=== PATIENT | female | born 1975 | race Caucasian/White ===

== ENCOUNTER 2021-08-17 17:25 | Emergency (ER) | payer SELFPAY ==
[~2021-08-17] VITALS: Ht 160 cm; Wt 67.3 kg
[2021-08-17] MEDS ORDERED: SYNTHROID137 MCG PO (17:43)
[2021-08-17] MEDS ORDERED: CLONAZEPAM2 MG PO (17:44)
[2021-08-17] MEDS ORDERED: LEXAPRO20 M1 PO (17:44)
[2021-08-17] MEDS ORDERED: ADDERALL 30 MG30 MG PO (17:44)
[2021-08-17 19:07] VITALS: BP 122/83
== END 2021-08-17 19:07 | disposition home or self-care (01) ==
LOC: ED 17:25
DX: S60.211A Contusion of right wrist, initial encounter (principal); F17.210 Nicotine dependence, cigarettes, uncomplicated; Y04.0XXA Assault by unarmed brawl or fight, initial encounter

== ENCOUNTER 2021-09-10 20:27 | Emergency (ER) | payer OTHER ==
[~2021-09-10 20:27] MED LIST: ADDERALL 30 MG30 MG PO; CLONAZEPAM2 MG PO; LEXAPRO20 M1 PO; SYNTHROID137 MCG PO
[2021-09-10 21:54] LABS: BASO # 0.01 K/mm3 (0.02-0.10); HEMATOCRIT 36.7 % (37.0-47.0); HEMOGLOBIN 12.8 g/dL (12.5-16.0); LYMPH# 3.28 K/mm3 (1.50-4.00); MEAN CELL VOLUME 95 fl (78-100); MEAN CORPUSCULAR HEMOGLOBIN 33 pg (27-31); MEAN CORPUSCULAR HGB CONC 35 g/dL (33-37); MEAN PLATELET VOLUME 8.3 fl (7.4-10.4); MONO # 0.67 K/mm3 (0.20-0.80); NEU # 5.88 K/mm3 (1.40-6.50); PLATELET COUNT 379 K/mm3 (130-400); RED BLOOD COUNT 3.88 M/mm3 (4.10-5.30)
[2021-09-10 22:03] LABS: ALBUMIN 3.7 g/dL (3.5-5.0)
[2021-09-10 22:04] LABS: POTASSIUM 3.6 mmol/L (3.5-5.1); SODIUM 137 mmol/L (136-145)
[2021-09-10 22:05] LABS: CALCIUM 9.3 mg/dL (8.3-10.5)
[2021-09-10 22:06] LABS: GLUCOSE 92 mg/dL (65-105)
[2021-09-10 22:07] LABS: CARBON DIOXIDE 21 mmol/L (22-29)
[2021-09-10 22:08] LABS: TOTAL BILIRUBIN 0.2 mg/dL (0.2-1.2)
[2021-09-10 22:11] LABS: AST-SGOT 9 U/L (5-34)
[2021-09-10 22:13] LABS: ALT/SGPT 13 U/L (0-55)
[2021-09-10 22:39] VITALS: BP 119/56
== END 2021-09-10 23:22 ==
LOC: ED 20:27
PROVIDERS: Physician Assistant
DX: M79.642 Pain in left hand (principal); F17.200 Nicotine dependence, unspecified, uncomplicated; Z28.310 Unvaccinated for COVID-19
CPT/HCPCS: J1885